=== PATIENT | female | born 1985 ===

== ENCOUNTER 2022-03-24 19:30 | Inpatient (IN) ==
[2022-03-24] MEDS ORDERED: Ondansetron 4 MG/2 ML VIAL IVP ONE (20:44)
[2022-03-24] MEDS ORDERED: 0.9 % Sodium Chloride 1,000 ML IVC ONE (20:44)
[2022-03-24 21:00] LABS: Hematocrit 40.3 % (35.3-44.9); Hemoglobin 13.9 g/dL (11.5-15.4); Mean Corpuscular HGB Conc 34.5 g/dL (31.6-35.5); Mean Corpuscular Hemoglobin 30.2 pg (28.0-33.3); Mean Corpuscular Volume 87.6 fL (83.0-100.0); Mean Platelet Volume 9.1 fL (9.4-12.4); Platelet Count 255 K/mcL (140-400); Red Cell Distribution Width 12.5 % (11.5-14.5); White Blood Count 13.5 K/mcL (4.3-11.1)
[2022-03-24 21:12] LABS: BUN/Creatinine Ratio 18 (6-26); Blood Urea Nitrogen 14 mg/dL (6-20); Calcium 9.1 mg/dL (8.6-10.3); Carbon Dioxide 21 mEq/L (23-29); Chloride 104 mEq/L (98-107); Glucose 124 mg/dL (70-105); Osmolality,Calculated 278 (280-300); Potassium 3.6 mEq/L (3.5-5.1); Sodium 133 mEq/L (136-145)
[2022-03-24 21:27] LABS: Influenza A PCR Negative (Negative); Influenza B PCR Negative (Negative); Resp. Syncytial Virus PCR Negative (Negative); SARS-CoV-2 by PCR (In House) Negative (Negative)
[2022-03-24 21:28] LABS: Basophils # 0.3 K/mcL (0.0-0.2); Eosinophils # 0.3 K/mcL (0.0-0.6); Lymphocytes # 4.3 K/mcL (0.6-4.6); Monocytes # 0.3 K/mcL (0.0-1.3); Neutrophils # 8.4 K/mcL (1.6-8.9); Platelet Estimate Normal (Normal); Reactive Lymphocytes Present (Not Present)
[2022-03-24] MEDS ORDERED: Iopamidol - 370 500 ML MLS IVP ONE (21:40)
[2022-03-24] MEDS ORDERED: Ketorolac 30 MG/ML VIAL IVP ONE (23:25)
[2022-03-24 23:50] LABS: Adenovirus Not Detected (Not Detect); Bordetella Pertussis Not Detected (Not Detect); Chlamydophila pneumoniae Not Detected (Not Detect); Coronavirus 229E Not Detected (Not Detect); Coronavirus HKU1 Not Detected (Not Detect); Coronavirus NL63 Not Detected (Not Detect); Coronavirus OC43 Not Detected (Not Detect); Human Metapneumovirus Not Detected (Not Detect); Human Rhinovirus/Enterovirus Not Detected (Not Detect); Influenza A Subtype 2009 H1 Not Detected (Not Detect); Influenza B Not Detected (Not Detect); Mycoplasma pneumoniae Not Detected (Not Detect); Parainfluenza Virus 1 Not Detected (Not Detect); Parainfluenza Virus 2 Not Detected (Not Detect); Parainfluenza Virus 3 Not Detected (Not Detect); Parainfluenza Virus 4 Not Detected (Not Detect); Respiratory Syncytial Virus Not Detected (Not Detect); SARS-CoV-2 Not Detected (Not Detect)
[2022-03-25] MEDS ORDERED: Ondansetron 4 MG/2 ML VIAL IVP ONE (00:04)
[2022-03-25] MEDS ORDERED: Morphine Sulfate 2 MG/ML SYRINGE IVP ONE (00:04)
[2022-03-25 01:27] LABS: Red Blood Cell,CSF < 2000 RBC/mcL
[2022-03-25] MEDS ORDERED: Naloxone 0.4 MG/ML INJ IVP PRN (01:33)
[2022-03-25 01:39] LABS: Appearance,CSF Clear (Clear)
[2022-03-25 01:52] LABS: Glucose,CSF 58 mg/dL (40-70); Total Protein,CSF 35 mg/dL (15-45)
[2022-03-25] MEDS: Dexamethasone Sodium Phos/PF 10 MG/ML VIAL IVP SCH ×2 (02:06→09:19)
[2022-03-25] MEDS: 0.9 % Sodium Chloride 1,000 ML IVC SCH ×2 (02:08→13:59)
[2022-03-25] MEDS ORDERED: Vancomycin 1,500 MG/265 ML IV.SOLN IVPB SCH ×2 (03:00→17:00)
[2022-03-25] MEDS ORDERED: Gadolinium Contrast Agent (WT Based) IV PRN (05:04)
[2022-03-25] MEDS ORDERED: cefTRIAXone 2,000 MG in 0.9 % Sodium Chloride 20 ML IVP SCH ×2 (06:00→08:00)
[2022-03-25 09:22] LABS: Hematocrit 38.8 % (35.3-44.9); Hemoglobin 13.3 g/dL (11.5-15.4); Mean Corpuscular HGB Conc 34.3 g/dL (31.6-35.5); Mean Corpuscular Hemoglobin 29.9 pg (28.0-33.3); Mean Corpuscular Volume 87.2 fL (83.0-100.0); Mean Platelet Volume 9.2 fL (9.4-12.4); Platelet Count 232 K/mcL (140-400); Red Blood Count 4.45 M/mcL (3.82-4.97); Red Cell Distribution Width 12.6 % (11.5-14.5); White Blood Count 9.6 K/mcL (4.3-11.1)
[2022-03-25] MEDS: Acyclovir 600 MG in D5% in Water 100 ML IVPB SCH ×3 (09:24→23:32)
[2022-03-25 09:43] LABS: Alanine Aminotransferase 19 Units/L (7-52); Albumin 4.2 g/dL (3.5-5.7); Albumin/Globulin Ratio 1.7 (1.1-2.2); Alkaline Phosphatase 59 Units/L (34-104); Aspartate Amino Transferase 17 Units/L (13-39); BUN/Creatinine Ratio 14 (6-26); Bilirubin,Total 0.5 mg/dL (0.3-1.0); Blood Urea Nitrogen 10 mg/dL (6-20); Calcium 8.4 mg/dL (8.6-10.3); Carbon Dioxide 20 mEq/L (23-29); Chloride 106 mEq/L (98-107); Globulin 2.5 g/dL (2.4-3.5); Glucose 135 mg/dL (70-105); Magnesium 1.9 mg/dL (1.6-2.6); Osmolality,Calculated 281 (280-300); Phosphorous 2.3 mg/dL (2.7-4.5); Potassium 4.2 mEq/L (3.5-5.1); Sodium 135 mEq/L (136-145); Total Protein 6.7 g/dL (6.4-8.9)
[2022-03-25 10:05] LABS: Lymphocytes # 1.9 K/mcL (0.6-4.6); Monocytes # 0.2 K/mcL (0.0-1.3); Neutrophils # 7.5 K/mcL (1.6-8.9); Platelet Estimate Normal (Normal)
[2022-03-25] MEDS ORDERED: Vancomycin 0 MG in 0.9 % Sodium Chloride 250 ML IVPB SCH (17:00)
[2022-03-25] MEDS: Vancomycin 1,500 MG/265 ML IV.SOLN IVPB SCH (17:36)
[2022-03-25] MEDS: cefTRIAXone 2,000 MG in 0.9 % Sodium Chloride Mini Bag 100 ML IVPB SCH (20:15)
[2022-03-25] MEDS ORDERED: Ketorolac 30 MG/ML VIAL IVP ONE (20:44)
[2022-03-25] MEDS: *HR* HYDROcodone/Acet 5/325 mg TABLET PO PRN (21:32)
[2022-03-25] MEDS: Melatonin 3 MG TABLET PO PRN (21:32)
[2022-03-26] MEDS: Vancomycin 1,500 MG/265 ML IV.SOLN IVPB SCH ×2 (05:29→16:56)
[2022-03-26] MEDS: Ondansetron ODT 4 MG TAB.RAPDIS SL PRN ×2 (06:23→19:05)
[2022-03-26] MEDS: Acetaminophen 325 MG TABLET PO PRN (06:23)
[2022-03-26] MEDS: cefTRIAXone 2,000 MG in 0.9 % Sodium Chloride Mini Bag 100 ML IVPB SCH ×2 (08:08→21:53)
[2022-03-26] MEDS: *HR* HYDROcodone/Acet 5/325 mg TABLET PO PRN ×2 (08:08→17:49)
[2022-03-26] MEDS: Acyclovir 600 MG in D5% in Water 100 ML IVPB SCH ×2 (08:09→15:53)
[2022-03-26] MEDS ORDERED: Ketorolac 30 MG/ML VIAL IVP ONE ×2 (08:35→18:42)
[2022-03-26 13:14] LABS: BUN/Creatinine Ratio 18 (6-26); Blood Urea Nitrogen 12 mg/dL (6-20); Calcium 8.2 mg/dL (8.6-10.3); Carbon Dioxide 23 mEq/L (23-29); Chloride 110 mEq/L (98-107); Glucose 91 mg/dL (70-105); Osmolality,Calculated 285 (280-300); Potassium 3.6 mEq/L (3.5-5.1); Sodium 138 mEq/L (136-145)
[2022-03-26] MEDS: Sennosides/Docusate Sodium TABLET PO SCH ×2 (16:56→21:54)
[2022-03-26] MEDS: Melatonin 3 MG TABLET PO PRN (21:54)
[2022-03-27] MEDS: Acyclovir 600 MG in D5% in Water 100 ML IVPB SCH ×3 (00:20→16:09)
[2022-03-27] MEDS: *HR* HYDROcodone/Acet 5/325 mg TABLET PO PRN ×3 (00:20→14:40)
[2022-03-27] MEDS: Acetaminophen 325 MG TABLET PO PRN ×3 (05:24→21:42)
[2022-03-27] MEDS: Vancomycin 1,750 MG/517.5 ML IV.SOLN IVPB SCH ×2 (05:27→16:09)
[2022-03-27] MEDS: cefTRIAXone 2,000 MG in 0.9 % Sodium Chloride Mini Bag 100 ML IVPB SCH ×2 (08:36→21:34)
[2022-03-27] MEDS: Thiamine (B-1) 100 MG TABLET PO SCH (08:37)
[2022-03-27] MEDS: Sennosides/Docusate Sodium TABLET PO SCH ×2 (08:37→21:42)
[2022-03-27] MEDS ORDERED: Gadolinium Contrast Agent (WT Based) IV PRN ×2 (08:56→10:35)
[2022-03-27] MEDS ORDERED: Ketorolac 30 MG/ML VIAL IVP ONE (08:58)
[2022-03-27] MEDS ORDERED: Morphine Sulfate 2 MG/ML SYRINGE IVP ONE (10:22)
[2022-03-27] MEDS: Morphine Sulfate 2 MG/ML SYRINGE IVP PRN ×2 (15:38→21:43)
[2022-03-27 16:53] LABS: BUN/Creatinine Ratio 12 (6-26); Blood Urea Nitrogen 8 mg/dL (6-20); Calcium 8.1 mg/dL (8.6-10.3); Carbon Dioxide 24 mEq/L (23-29); Chloride 102 mEq/L (98-107); Glucose 83 mg/dL (70-105); Osmolality,Calculated 269 (280-300); Potassium 3.7 mEq/L (3.5-5.1); Sodium 131 mEq/L (136-145)
[2022-03-27] MEDS: Ondansetron ODT 4 MG TAB.RAPDIS SL PRN (17:06)
[2022-03-27] MEDS ORDERED: acetaZOLAMIDE 250 MG TABLET PO ONE (17:57)
[2022-03-27] MEDS: Melatonin 3 MG TABLET PO PRN (21:42)
[2022-03-27] MEDS: lamoTRIgine 25 MG TABLET PO SCH (21:43)
[2022-03-28] MEDS: *HR* HYDROcodone/Acet 5/325 mg TABLET PO PRN ×3 (01:41→21:06)
[2022-03-28] MEDS: Ondansetron ODT 4 MG TAB.RAPDIS SL PRN (01:41)
[2022-03-28 02:45] LABS: Basophils # 0.1 K/mcL (0.0-0.2); Basophils % 0.5 %; Eosinophils % 0.1 %; Hematocrit 37.5 % (35.3-44.9); Hemoglobin 12.9 g/dL (11.5-15.4); Immature Granulocytes % 0.5 % (0-4); Lymphocytes # 2.7 K/mcL (0.6-4.6); Lymphocytes % 15.7 %; Mean Corpuscular HGB Conc 34.4 g/dL (31.6-35.5); Mean Corpuscular Hemoglobin 30.4 pg (28.0-33.3); Mean Corpuscular Volume 88.4 fL (83.0-100.0); Mean Platelet Volume 9.3 fL (9.4-12.4); Monocytes # 0.8 K/mcL (0.0-1.3); Monocytes % 4.9 %; Neutrophils # 13.2 K/mcL (1.6-8.9); Platelet Count 310 K/mcL (140-400); Red Blood Count 4.24 M/mcL (3.82-4.97); Red Cell Distribution Width 12.5 % (11.5-14.5); Segmented Neutrophils % 78.3 %
[2022-03-28 03:00] LABS: BUN/Creatinine Ratio 9 (6-26); Blood Urea Nitrogen 7 mg/dL (6-20); C-Reactive Protein 17 mg/L (Less than 10); Calcium 8.2 mg/dL (8.6-10.3); Carbon Dioxide 18 mEq/L (23-29); Chloride 102 mEq/L (98-107); Glucose 94 mg/dL (70-105); Osmolality,Calculated 266 (280-300); Potassium 3.7 mEq/L (3.5-5.1); Sodium 129 mEq/L (136-145)
[2022-03-28 03:02] LABS: White Blood Count 16.9 K/mcL (4.3-11.1)
[2022-03-28] MEDS: Vancomycin 1,750 MG/517.5 ML IV.SOLN IVPB SCH ×2 (05:45→18:36)
[2022-03-28] MEDS: Morphine Sulfate 2 MG/ML SYRINGE IVP PRN (05:45)
[2022-03-28] MEDS ORDERED: Ketorolac 30 MG/ML VIAL IVP PRN (07:41)
[2022-03-28] MEDS: Sennosides/Docusate Sodium TABLET PO SCH ×2 (09:50→21:06)
[2022-03-28] MEDS: Thiamine (B-1) 100 MG TABLET PO SCH (09:50)
[2022-03-28] MEDS: cefTRIAXone 2,000 MG in 0.9 % Sodium Chloride Mini Bag 100 ML IVPB SCH ×2 (09:50→21:07)
[2022-03-28] MEDS: lamoTRIgine 25 MG TABLET PO SCH ×2 (09:50→21:06)
[2022-03-28] MEDS: Acyclovir 600 MG in D5% in Water 100 ML IVPB SCH ×4 (09:51→23:37)
[2022-03-28] MEDS: *HR* Enoxaparin 40 MG/0.4 ML SYRINGE SQ SCH (10:42)
[2022-03-29 05:42] LABS: Basophils # 0.1 K/mcL (0.0-0.2); Basophils % 0.7 %; Eosinophils # 0.1 K/mcL (0.0-0.6); Eosinophils % 0.7 %; Hematocrit 39.9 % (35.3-44.9); Hemoglobin 13.7 g/dL (11.5-15.4); Immature Granulocytes % 0.5 % (0-4); Lymphocytes # 1.8 K/mcL (0.6-4.6); Lymphocytes % 13.3 %; Mean Corpuscular HGB Conc 34.3 g/dL (31.6-35.5); Mean Corpuscular Hemoglobin 30.2 pg (28.0-33.3); Mean Corpuscular Volume 88.1 fL (83.0-100.0); Monocytes # 0.8 K/mcL (0.0-1.3); Monocytes % 5.5 %; Neutrophils # 10.7 K/mcL (1.6-8.9); Platelet Count 269 K/mcL (140-400); Red Blood Count 4.53 M/mcL (3.82-4.97); Red Cell Distribution Width 12.6 % (11.5-14.5); Segmented Neutrophils % 79.3 %; White Blood Count 13.5 K/mcL (4.3-11.1)
[2022-03-29] MEDS: *HR* Enoxaparin 40 MG/0.4 ML SYRINGE SQ SCH (06:20)
[2022-03-29] MEDS: *HR* HYDROcodone/Acet 5/325 mg TABLET PO PRN ×2 (06:20→16:02)
[2022-03-29 06:22] LABS: Calcium 8.8 mg/dL (8.6-10.3); Potassium 3.7 mEq/L (3.5-5.1)
[2022-03-29] MEDS: Ondansetron ODT 4 MG TAB.RAPDIS SL PRN (06:24)
[2022-03-29] MEDS: Acyclovir 600 MG in D5% in Water 100 ML IVPB SCH ×2 (07:57→16:02)
[2022-03-29] MEDS: Thiamine (B-1) 100 MG TABLET PO SCH (07:57)
[2022-03-29] MEDS: Sennosides/Docusate Sodium TABLET PO SCH ×2 (07:57→20:35)
[2022-03-29] MEDS: lamoTRIgine 25 MG TABLET PO SCH ×2 (07:57→20:35)
[2022-03-29 15:01] LABS: Enterovirus RNA Qual (PCR) NOT DETECTED; HSV 1 Glycoprotein G IgG CSF 0.18 IV (<=0.89); HSV 2 Glycoprotein G IgG CSF 0.25 IV (<=0.89)
[2022-03-29] MEDS: Morphine Sulfate 2 MG/ML SYRINGE IVP PRN (17:21)
[2022-03-30] MEDS: Acyclovir 600 MG in D5% in Water 100 ML IVPB SCH ×2 (01:12→10:44)
[2022-03-30] MEDS: Thiamine (B-1) 100 MG TABLET PO SCH (07:48)
[2022-03-30] MEDS: *HR* HYDROcodone/Acet 5/325 mg TABLET PO PRN (07:48)
[2022-03-30] MEDS: lamoTRIgine 25 MG TABLET PO SCH (07:48)
[2022-03-30] MEDS: *HR* Enoxaparin 40 MG/0.4 ML SYRINGE SQ SCH (07:49)
[2022-03-30] MEDS: Sennosides/Docusate Sodium TABLET PO SCH (07:49)
[2022-03-30] MEDS ORDERED: Gadolinium Contrast Agent (WT Based) IV PRN (08:15)
[2022-03-30 08:57] LABS: Basophils # 0.1 K/mcL (0.0-0.2); Basophils % 0.5 %; Eosinophils # 0.1 K/mcL (0.0-0.6); Hematocrit 37.6 % (35.3-44.9); Hemoglobin 13.1 g/dL (11.5-15.4); Immature Granulocytes % 0.4 % (0-4); Lymphocytes # 2.4 K/mcL (0.6-4.6); Mean Corpuscular HGB Conc 34.8 g/dL (31.6-35.5); Mean Corpuscular Hemoglobin 30.1 pg (28.0-33.3); Mean Corpuscular Volume 86.4 fL (83.0-100.0); Mean Platelet Volume 8.8 fL (9.4-12.4); Monocytes # 0.7 K/mcL (0.0-1.3); Monocytes % 5.7 %; Neutrophils # 9.1 K/mcL (1.6-8.9); Platelet Count 306 K/mcL (140-400); Red Blood Count 4.35 M/mcL (3.82-4.97); Red Cell Distribution Width 12.4 % (11.5-14.5); Segmented Neutrophils % 73.4 %; White Blood Count 12.3 K/mcL (4.3-11.1)
[2022-03-30 09:15] LABS: BUN/Creatinine Ratio 15 (6-26); Blood Urea Nitrogen 11 mg/dL (6-20); Calcium 8.5 mg/dL (8.6-10.3); Carbon Dioxide 21 mEq/L (23-29); Chloride 104 mEq/L (98-107); Glucose 83 mg/dL (70-105); Osmolality,Calculated 275 (280-300); Potassium 3.5 mEq/L (3.5-5.1); Sodium 133 mEq/L (136-145)
[2022-03-30] MEDS ORDERED: *HR* OxyCODONE/APAP 5/325 TABLET PO ONE (09:39)
[2022-03-30 12:10] VITALS: BP 120/78; PULSE 68; TEMP 99.2; O2SAT 97
[2022-03-30] MEDS ORDERED: *HR* HYDROcodone/Acet 10/325 mg TABLET PO PRN (15:14)
[2022-03-30] MEDS ORDERED: valACYclovir 500 MG TABLET PO SCH (15:15)
== END 2022-03-30 18:31 | disposition home or self-care (01) | DRG 75 ==
LOC: 2ANU 19:30 → EMEROOARM 19:30 → 2ANU 03-25 02:10 → SUATTDRO 03-26 17:17
PROVIDERS: ADMIT Internal Medicine; ATTEND General Practice